=== PATIENT | male | born 2000 | race Caucasian/White ===

== ENCOUNTER 2023-06-05 14:53 | Outpatient (CLI) | payer BC | END 2023-06-05 14:54 | disposition home or self-care (01) | LOC: CT 14:53 | PROVIDERS: ATTEND Urology | DX: N20.0 Calculus of kidney (principal); R35.0 Frequency of micturition; R10.9 Unspecified abdominal pain | CPT/HCPCS: 74176 ==

== ENCOUNTER 2023-06-20 12:50 | Outpatient (CLI) | payer BC ==
[2023-06-20 15:10] LABS: Anion Gap 14 mmol/L (10-20); BUN (Urea Nitrogen) 9 mg/dL (8.9-20.6); Bilirubin Neg (Negative); Blood, Urine Negative (Negative); Calc. Creatinine Clearance 0 mL/min (70-130); Carbon Dioxide 26 mmol/L (22-29); Chloride 104 mmol/L (98-107); Clarity Clear (Clear); Estimated GFR 122; Glucose 82 mg/dL (70-105); Glucose, Urine (Dipstick) Normal (Negative); Hematocrit 43.7 % (38.8-50.0); Hemoglobin 14.9 g/dL (13.5-17.5); Ketone, Urine Negative (Negative); Leukocyte Negative (Negative); Mean Corpuscular HGB CONC 34.1 g/dL (32.0-36.0); Mean Corpuscular Hemoglobin 28.6 pg (27.0-33.0); Mean Corpuscular Volume 83.9 fl (81.2-95.1); Mean Platelet Volume 11.4 fl (7.4-10.4); Nitrite Negative (Negative); Platelet Count 280 10x3/uL (150-450); Protein, Urine (Dipstick) Negative (Neg-Trace); RBC Distribution Width 11.8 % (11.5-14.5); Red Blood Cell (RBC) Count 5.21 10x6/uL (4.32-5.72); Sodium 140 mmol/L (136-145); Specific Gravity, Urine 1.005 (1.005-1.030); Urobilinogen Normal mg/dL (Less than 2)
[2023-06-20 15:17] LABS: PTT 27.8 sec (22.0-33.0); Prothrombin Time 11.1 sec (9.5-12.1)
[2023-06-20 15:34] LABS: Bacteria/HPF None Seen HPF (None Seen); RBC/HPF None Seen HPF (0-3); Squamous Epithelial None Seen HPF (0-3); WBC/HPF None Seen HPF (0-3)
== END 2023-06-20 12:51 | disposition home or self-care (01) ==
LOC: LABBT 12:50
PROVIDERS: ATTEND Urology
DX: Z01.812 Encounter for preprocedural laboratory examination (principal); N20.0 Calculus of kidney; R35.0 Frequency of micturition; R10.9 Unspecified abdominal pain
CPT/HCPCS: 80048; 81001; 85027; 85610; 85730; 87086

== ENCOUNTER 2023-06-27 08:22 | Day surgery (SDC) | payer BC ==
[2023-06-20 13:42] VITALS: BMI 21.6
[2023-06-27] MEDS ORDERED: LevoFLOXacin 500 mg/D5W 100 ML BAG ONE (08:57)
[2023-06-27] MEDS ORDERED: fentaNYL PF 100 MCG/2 ML SYRINGE ONE (09:11)
[2023-06-27] MEDS ORDERED: Rocuronium Bromide 10 MG/ML (10ML VIAL) ONE ×2 (09:11→09:57)
[2023-06-27] MEDS ORDERED: Lidocaine 2% PF 5 ML VIAL ONE (09:12)
[2023-06-27] MEDS ORDERED: PROPOFOL 20 ML ONE (09:12)
[2023-06-27] MEDS ORDERED: Succinylcholine 200 MG/10 ml SYRINGE FS ONE ×2 (09:15→09:57)
[2023-06-27] MEDS ORDERED: Iopamidol 30 ML ONE (09:29)
[2023-06-27] MEDS ORDERED: SUGAMMADEX SODIUM 200 MG/2 ML VIAL ONE (09:46)
[2023-06-27] MEDS ORDERED: Midazolam HCl 2 mg/2 ml Vial ONE (09:48)
[2023-06-27] MEDS ORDERED: Lidocaine 1% PF 5 ML VIAL ONE (09:57)
[2023-06-27] MEDS ORDERED: Ondansetron PF 4 MG/2 ML Vial ONE ×3 (09:57→12:16)
[2023-06-27] MEDS ORDERED: PROPOFOL 200 MG/20 ML VIAL ONE (09:57)
[2023-06-27] MEDS ORDERED: Naloxone HCl 0.4 mg/ml Vial ONE ×2 (09:57→10:50)
[2023-06-27] MEDS ORDERED: Ketorolac Tromethamine 30 MG/ML VIAL ONE ×2 (09:57→10:40)
[2023-06-27] MEDS ORDERED: Dexamethasone 20 MG/5 ML VIAL ONE (09:57)
[2023-06-27] MEDS ORDERED: Dexamethasone 4 mg/ml Vial ONE (10:41)
[2023-06-27] MEDS ORDERED: Phenazopyridine HCl 100 MG TAB ONE ×2 (11:06→11:07)
[2023-06-27] MEDS ORDERED: fentaNYL 50 mcg/mL 1 mL Vial ONE (11:27)
[2023-06-27] MEDS ORDERED: HYDROcodone/Acetaminophen 5/325 mg Tablet ONE (12:29)
== END 2023-06-27 13:38 | disposition home or self-care (01) ==
LOC: SDC 08:22
PROVIDERS: ATTEND Urology
PROC: 0TC68ZZ Extirpation of Matter from Right Ureter, Via Natural or Artificial Opening Endoscopic (ICD-10-PCS; principal; 2023-06-27)
PROC: 0T768DZ Dilation of Right Ureter with Intraluminal Device, Via Natural or Artificial Opening Endoscopic (ICD-10-PCS; principal; 2023-06-27)
DX: N20.2 Calculus of kidney with calculus of ureter (principal); R35.0 Frequency of micturition; F17.200 Nicotine dependence, unspecified, uncomplicated; Z88.0 Allergy status to penicillin; Z79.899 Other long term (current) drug therapy
CPT/HCPCS: 74018; 74420; 82365; 88300; C1747; C1769; C2617; J1100; J1885; J1956; J2001; J2250; J2310; J2405; J2704; J3010; Q9967